=== PATIENT | female | born 1985 | race Caucasian/White ===

== ENCOUNTER 2016-06-19 11:19 | Day surgery (SDC) | payer OTHER ==
[2016-06-18 13:49] VITALS: BMI 40.7
[2016-06-19] VITALS (12 sets, daily range): BP systolic 116–135; BP diastolic 59–65; PULSE 64–86; RESP 15–26; Ht 165.1 cm; Wt 74.2 kg
[~2016-06-19] VITALS: Ht 165.1 cm; Wt 74.2 kg
[2016-06-19] MEDS ORDERED: NEOSTIGMINE 3 MG/3 ML SYRINGE ONE (14:34)
[2016-06-19] MEDS ORDERED: ROCURONIUM 50 MG INJ ONE (14:34)
[2016-06-19] MEDS ORDERED: PROPOFOL 20 ML ONE (14:34)
[2016-06-19] MEDS ORDERED: LIDOCAINE 2% (SDV) 5 ML INJ ONE (14:34)
[2016-06-19] MEDS ORDERED: SUCCINYLCHOLINE CHLORIDE 100 MG/5 ML SYG IV ONE (14:34)
[2016-06-19] MEDS ORDERED: GLYCOPYRROLATE 0.4 MG INJ ONE (14:34)
[2016-06-19] MEDS ORDERED: MEPERIDINE 100 MG INJ ONE (14:34)
[2016-06-19] MEDS ORDERED: CEFAZOLIN 1 GM INJ ONE (14:37)
[2016-06-19] MEDS ORDERED: POLYMYXIN/BACITRACIN 1L IRRIG ONE (14:39)
[2016-06-19] MEDS ORDERED: BUPIVACAINE 0.25% (MPF) 30 ML INJ ONE (14:44)
[2016-06-19] MEDS ORDERED: BUPIVACAINE 0.25% (MPF) 30 ML INJ INJ ONE (15:25)
[2016-06-19] MEDS ORDERED: METOCLOPRAMIDE 10 MG INJ ONE (15:28)
[2016-06-19] MEDS ORDERED: ONDANSETRON 4 MG INJ ONE (15:28)
--- NOTE | 2016-06-19 15:50 | OPR ---
DATE OF OPERATION: 06/19/2016 INDICATION: This is a 30-year-old female with incarcerated ventral hernia. She requests surgical r epair. Risks, alternatives, benefits, and personnel were discussed with the patient. Patient expre ssed understanding and consents to the operation. PREOPERATIVE DIAGNOSIS: Incarcerated ventral hernia. POSTOPERATIVE DIAGNOSIS: Incarcerated ventral hernia. OPERATION PERFORMED: Laparoscopic incarcerated ventral hernia repair with 10 x [address] mesh. SURGEON: Heath Shi MD SPECIMEN: None. COMPLICATIONS: None. ANESTHESIA: General. PROCEDURE: The patient was taken to the OR and prepped and draped in the usual sterile fashion. Mishra rgical timeout was performed. IV antibiotics were given. Left upper quadrant 5 mm transverse incis ion is made with a 15 blade. Using a 5 mm optical trocar, optical entry was performed. Pneumoperit oneum was established. Left flank 12 mm optical trocar and left lower quadrant 5 mm optical trocars are placed under direct visualization. Upon initial inspection, there were some incarcerated tomás nts of the hernia. This was resected with laparoscopic Harmonic. The defect was identified and adrian sed with interrupted #1 Prolene with Endo Close and laparoscopic techniques. Underlay mesh was secu red with SecureStrap with approximately 4 to 5 cm of coverage in all directions. There was good hem ostasis. Ports were removed under direct visualization. Skin was closed using skin gamal. Local anesthesia was injected. Dry dressing was applied. Dictated By: HEATH SORENSON/ZITA Conf#: [id number] DID#: [id number]
[2016-06-19] MEDS ORDERED: morphine (1 MG/ML) 10ML SYRINGE IV PRN ×2 (16:00)
[2016-06-19] MEDS ORDERED: FENTAnyl 50 MCG/ML VIAL IV PRN ×2 (16:00)
[2016-06-19] MEDS ORDERED: MIDAZOLAM 1 MG/ML 2 ML INJ IV PRN (16:00)
[2016-06-19] MEDS ORDERED: ONDANSETRON 4 MG INJ IV PRN (16:00)
[2016-06-19] MEDS ORDERED: MEPERIDINE 25 MG INJ IV PRN (16:00)
[2016-06-19] MEDS ORDERED: METOCLOPRAMIDE 10 MG INJ IV PRN (16:00)
[2016-06-19] MEDS ORDERED: EPHEDrine SULFATE 50 MG/5 ML SYG IV PRN (16:00)
[2016-06-19] MEDS ORDERED: LABETALOL HCL 20MG INJ IV PRN (16:00)
[2016-06-19] MEDS ORDERED: HYDROmorphONE (0.2 MG/ML) 10ML SYG IV PRN ×2 (16:00)
[2016-06-19] MEDS ORDERED: DIPHENHYDRAMINE 50 MG INJ IV PRN (16:00)
[2016-06-19] MEDS ORDERED: hydrALAzine 20 MG INJ IV PRN (16:00)
[2016-06-19] MEDS ORDERED: HYDROCODONE/APAP (5/325) TAB PO ONE (16:00)
== END 2016-06-19 18:30 | disposition home or self-care (01) ==
LOC: SDS 11:19
PROVIDERS: ATTEND Surgery
DX: K43.6 Other and unspecified ventral hernia with obstruction, without gangrene (principal)
CPT/HCPCS: 49653; 84703; C1781; J0330; J0690; J1170; J2175; J2405; J2710; J2765; Z7512; Z7610